=== PATIENT | male | born 1985 | race Caucasian/White ===

== ENCOUNTER → 2024-01-14 14:37 | Outpatient (CLI) | payer BC, SELFPAY ==
--- NOTE | 2024-01-14 14:40 | DI.RAD.S_ITS ---
PROCEDURE: XR LUMBAR SPINE MIN 4V INDICATIONS: BACK PAIN TECHNIQUE: 5 views of the lumbar spine were acquired, including bilateral oblique views. COMPARISON: None. FINDINGS: Bones: 5 nonrib-bearing vertebrae are present. There is normal bony alignment. No vertebral body compression fractures. No suspicious bony lesions. Mild lower lumbar facet arthropathy. Soft tissues: Overlying bowel gas pattern is normal. No suspicious soft tissue calcifications. Oblique images: No pars defects. IMPRESSION: No acute bony abnormality. Mild lower lumbar facet arthropathy. Dictated by: Freddy Rowell M.D. on 01/14/2024 at 16:03 Approved by: Freddy Rowell M.D. on 01/14/2024 at 16:03
--- NOTE | 2024-01-14 14:40 | DI.RAD.S_ITS ---
PROCEDURE: XR HIP W PEL IF DONE [facility] MIN 4V INDICATIONS: LEFT HIP PAIN TECHNIQUE: AP pelvis with lateral view(s) of the bilateral hip(s). COMPARISON: None. FINDINGS: Bones: No fractures or dislocations. Pelvic ring appears intact. No suspicious bony lesions. Mild bilateral hip degenerative change, left greater than right. Soft tissues: The visualized bowel gas pattern is normal. No suspicious soft tissue calcifications. IMPRESSION: Mild bilateral hip degenerative change, left greater than right. Dictated by: Freddy Rowell M.D. on 01/14/2024 at 18:56 Approved by: Freddy Rowell M.D. on 01/14/2024 at 18:57
== END ==
PROVIDERS: Referring Provider Physical Medicine & Rehabilitation; Visit Provider Physical Medicine & Rehabilitation
DX: M47.816 Spondylosis without myelopathy or radiculopathy, lumbar region (principal); M25.552 Pain in left hip; M54.9 Dorsalgia, unspecified
CPT/HCPCS: 72110; 73522

== ENCOUNTER → 2024-01-16 15:17 | Outpatient (CLI) | payer BC, SELFPAY ==
--- NOTE | 2024-01-16 15:18 | DI.MRI.S_ITS ---
PROCEDURE: MR LUMBAR SPINE WO CON INDICATIONS: Chronic progressive low back pain TECHNIQUE: Noncontrast sagittal T1 spin echo and T2 fast echo, sagittal STIR, and T2 fast spin echo through the lumbar spine. In cases with scoliosis, additional coronal T2 fast spin echo may be performed. COMPARISON: [facility], [place], XR LUMBAR SPINE MIN 4V, 01/14/2024, 14:41. FINDINGS: Image quality: Excellent. Alignment and Curvature: There is normal bony alignment. Bone Marrow: Marrow is of normal overall signal. No acute vertebral body compression fractures. Spinal Cord: Conus medullaris terminates at the L1 level. Visualized cord demonstrates normal signal and size. Paraspinous Soft Tissues: No paravertebral masses. T12-L1: Normal appearance. L1-L2: Normal appearance. L2-L3: Normal appearance. L3-L4: Disc bulge. Facet hypertrophy. Epidural lipomatosis. Borderline canal stenosis. No foraminal stenosis. L4-L5: Annulus fissure. Moderate diffuse disc bulge. Facet and ligament hypertrophy. Congenitally short pedicles. Moderate to severe canal stenosis. Moderate bilateral foraminal stenosis. L5-S1: Congenitally short pedicles. Disc bulge with right paracentral disc protrusion. The bilateral S1 nerve roots are abutted by disc material. There is [id number] canal stenosis. There is [id number] bilateral foraminal stenosis. IMPRESSION: 1. Patient has underlying congenitally short pedicles. 2. Canal stenosis is moderate to severe at L4-L5 and [id number] at L5-S1. 3. Lower lumbar facet arthropathy. Dictated by: Freddy Rowell M.D. on 01/22/2024 at 7:55 Approved by: Freddy Rowell M.D. on 01/22/2024 at 7:58
== END ==
LOC: MRI 15:17
PROVIDERS: Referring Provider Physical Medicine & Rehabilitation; Visit Provider Physical Medicine & Rehabilitation
DX: M47.816 Spondylosis without myelopathy or radiculopathy, lumbar region (principal); M53.3 Sacrococcygeal disorders, not elsewhere classified; M51.27 Other intervertebral disc displacement, lumbosacral region; M48.061 Spinal stenosis, lumbar region without neurogenic claudication; M48.07 Spinal stenosis, lumbosacral region
CPT/HCPCS: 72148

== ENCOUNTER → 2024-07-01 16:36 | Outpatient (CLI) | payer BC, SELFPAY ==
--- NOTE | 2024-07-01 16:37 | DI.MRI.S_ITS ---
PROCEDURE: MR HIP LT WO CON INDICATIONS: LEFT HIP TECHNIQUE: Noncontrast coronal T1 spin echo and STIR through the bony pelvis. Coronal and axial T2 fast spin echo with fat saturation, sagittal T1 spin echo, and oblique axial T2 fast spin echo with fat saturation through the hip. COMPARISON: None. FINDINGS: Image quality: Excellent. Bones and joints: Mild prominence of superior anterior left femoral head neck junction with small subcortical cystic area which can be seen associated with CAM type femoral acetabular impingement. No marrow edema. No intraosseous lesions or fractures. No avascular necrosis of the femoral heads. The visualized lower lumbar spine appears normally aligned. Tendons and ligaments: Distal left gluteus medius and minimus tendinosis at their insertions on greater trochanter is seen. No fluid distending trochanteric bursa. The nearby proximal iliotibial band also appears intact. The iliopsoas tendon appears intact, without adjacent bursal fluid collections or evidence for impingement syndrome. The origin of the hamstring tendon is intact at the ischial tuberosity. Labrum and cartilage: There is fraying of superior anterior left acetabular labrum with subtle T2 hyperintense signal concerning for superior anterior labral tear. Soft tissues: Visualized muscles demonstrate normal bulk and internal signal. Quadratus femoris muscle demonstrates no internal edema to suggest ischiofemoral impingement. The proximal sciatic neurovascular bundle appears normal adjacent to the hamstring tendons. No free pelvic fluid. Bladder wall thickness is normal. Genitourinary structures and bowel loops appear normal where visualized. IMPRESSION: 1. Mild prominence of superior anterior left femoral head neck junction with subcortical cystic area which can be seen associated with CAM type femoral acetabular impingement. 2. No marrow edema. No acute fracture or dislocation. No evidence of avascular necrosis of femoral head. 3. Distal left gluteus medius and minimus tendinosis. No other muscle or tendon signal abnormalities. 4. Suggestion of subtle superior anterior left acetabular labral tear. Dictated by: Bj Hickey M.D. on 07/02/2024 at 15:43 Approved by: Bj Hickey M.D. on 07/02/2024 at 15:48
== END ==
PROVIDERS: Referring Provider Physical Medicine & Rehabilitation; Visit Provider Physical Medicine & Rehabilitation
DX: M67.854 Other specified disorders of tendon, left hip (principal); M25.552 Pain in left hip
CPT/HCPCS: 73721